=== PATIENT | male | born 1990 | race Caucasian/White ===

== ENCOUNTER 2023-08-06 14:17 | Emergency (ER) | payer SELFPAY ==
[~2023-08-06] VITALS: Ht 177.8 cm; Wt 100.0 kg
[2023-08-06 14:31] VITALS: O2SAT 100
[2023-08-06] MEDS ORDERED: KETOROLAC 30MG/ML VIAL IV STA (15:21)
[2023-08-06] MEDS ORDERED: TETANUS, DIPHTHERIA, PERTUSSIS VAC/PF 0.5ML (>10YR OLD) IM ONE (15:30)
[2023-08-06] MEDS ORDERED: LIDOCAINE HCL/EPINEPHRINE 1%-EPI 1:100,000 20 ML VIAL INFIL ONE ×2 (15:30)
[2023-08-06] MEDS ORDERED: SODIUM CHLORIDE 0.9% 1,000 ML IV ONE (15:30)
[2023-08-06 17:26] LABS: BASOPHILS % 0.3 % (0.0-2.0); EOSINOPHILS % 2.3 % (0.0-5.0); HEMATOCRIT. 39.8 % (42.0-52.0); HEMOGLOBIN. 13.8 g/dL (14.0-18.0); LYMPHOCYTES % 8.6 % (20.0-50.0); MEAN CORPUSCULAR HEMOGLOBIN 31.1 pg (28.0-32.0); MEAN CORPUSCULAR HGB CONC 34.5 g/dL (31.0-37.0); MEAN PLATELET VOLUME 6.7 fl (7.4-10.4); MONOCYTES % 7.8 % (2.0-8.0); PLATELET 264 x1000/uL (130-400); RED BLOOD CELL COUNT 4.43 mill/uL (4.7-6.1); RED CELL DISTRIBUTION WIDTH 14.2 % (11.6-14.6); WHITE BLOOD COUNT 8.7 x1000/uL (4.5-11.0)
[2023-08-06 17:39] LABS: ALANINE AMINOTRANSFERASE 163 IU/L (10-49); ALBUMIN 3.6 g/dL (3.2-4.8); ASPARTATE AMINOTRANSFERASE 126 IU/L (<34); BILIRUBIN TOTAL 0.3 mg/dL (0.1-1.0); CALCIUM 8.6 mg/dL (8.7-10.4); CARBON DIOXIDE 32 mEq/L (21-32); CHLORIDE 104 mEq/L (98-107); CREATININE 0.8 mg/dL (0.6-1.3); GLUCOSE 116 mg/dL (70-105); POTASSIUM 3.4 mEq/L (3.5-5.1); PROTEIN TOTAL 6.5 g/dL (6.0-8.3); SODIUM 139 mEq/L (136-145); UREA NITROGEN BLOOD 8 mg/dL (9-23)
[2023-08-06 17:49] LABS: ETHANOL BLOOD < 10 mg/dL (<10)
[2023-08-06] MEDS ORDERED: IOHEXOL-300 100 ML BOTTLE ONE (20:03)
[2023-08-06] MEDS ORDERED: IBUP-2028 MT (21:02)
[2023-08-06] MEDS ORDERED: NALO4SPR BOTHNSTRLS (21:03)
[2023-08-06 21:38] VITALS: BP 136/97; PULSE 98; RESP 20; TEMP 98.3
== END 2023-08-06 21:41 | disposition home or self-care (01) ==
LOC: ER 14:17
DX: T40.601A Poisoning by unspecified narcotics, accidental (unintentional), initial encounter (principal); S31.119A Laceration without foreign body of abdominal wall, unspecified quadrant without penetration into peritoneal cavity, initial encounter; W18.39XA Other fall on same level, initial encounter; Y92.89 Other specified places as the place of occurrence of the external cause; Y93.89 Activity, other specified; Y99.8 Other external cause status
CPT/HCPCS: 80053; 80320; 83735; 85025; 36415; 71045; 74177; 90715; 93005; 12006; 90471; 96361; 96374; 99285; Q9967; J1885; J3490; J7030; G0480

== ENCOUNTER 2023-08-07 00:57 | Emergency (ER) | payer SELFPAY ==
[~2023-08-07] VITALS: Ht 175.3 cm; Wt 96.0 kg
[~2023-08-07 00:57] MED LIST: IBUP-2028 MT; NALO4SPR BOTHNSTRLS
[2023-08-07 01:04] VITALS: O2SAT 100
[2023-08-07 02:10] VITALS: BP 99/65; PULSE 85; RESP 17; TEMP 98.2
== END 2023-08-07 02:15 | disposition home or self-care (01) ==
LOC: ER 00:57
DX: S31.119D Laceration without foreign body of abdominal wall, unspecified quadrant without penetration into peritoneal cavity, subsequent encounter (principal); X58.XXXD Exposure to other specified factors, subsequent encounter
CPT/HCPCS: 99281; Z7610

== ENCOUNTER 2023-09-12 14:00 | Emergency (ER) | payer SELFPAY ==
[~2023-09-12] VITALS: Ht 175.3 cm; Wt 100.0 kg
[2023-09-12 14:35] VITALS: BP 118/79; PULSE 77; RESP 16; TEMP 98.6; O2SAT 100
== END 2023-09-12 14:51 | disposition home or self-care (01) ==
LOC: ER 14:44
DX: S31.119D Laceration without foreign body of abdominal wall, unspecified quadrant without penetration into peritoneal cavity, subsequent encounter (principal); F19.90 Other psychoactive substance use, unspecified, uncomplicated; X58.XXXD Exposure to other specified factors, subsequent encounter
CPT/HCPCS: 99281; Z7610 ×2